=== PATIENT | male | born 1930 | race Caucasian/White ===

== ENCOUNTER 2016-07-16 09:10 | Day surgery (SDC) | payer MEDICARE, BC ==
--- NOTE | 2016-07-14 22:18 | HP ---
HISTORY AND PHYSICAL: DATE OF PLANNED ADMISSION AND SURGERY: 07/16/16 HISTORY OF PRESENT ILLNESS: Mr. Lawrence is an 85-year-old white male, who is admitted with multiple bladder tumors for cystoscopy, transurethral resection, and for bilateral retrograde pyelographies. Mr. 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 At that time, cystoscopy showed no other tumors, and workup of his upper tracts was normal. In January 2016, he underwent a partial cystectomy excising the diverticulum and the surrounding bladder tissue. 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 There was adjacent carcinoma in situ, but the margins of the excised specimen were clean. The patient did very well postoperatively. He was started on intravesical BCG, but he did not tolerate the treatments well having irritative bladder symptoms and episodes of urge incontinence. He ended up taking only a total of 3 non consecutive treatments with the last one in April 2016 and he did not want to complete the recommended course of 6 treatments. Over the last several weeks, he has been having on and off episodes of gross hematuria. He had a cystoscopy in the office, which showed multiple recurrences of medium to high-grade looking bladder lesions consistent with bladder tumors. The lesions involved the anterior, the Rt lateral bladder wall , and the base of the bladder. Because of an elevated serum creatinine of 2, a CT urogram could not be obtained. 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 The patient is now admitted for transurethral resection of the bladder tumors and for bilateral retrograde pyelographies to evaluate his upper tracts and to rule out any abnormal filling defects in his ureters or collecting system. 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 At that time, his PSA was 8.8. He had a radiotherapy consultation with the intent of giving him radiation treatments; however, the patient declined and wanted to go on surveillance. His PSA in July 2014 went up to 35. Metastatic work-up was negative. He has been on intermittent hormone ablation therapy. His last Lupron shot was in April 2016 and at that time, his PSA was 0.3. The patient has peripheral vascular disease and renal vascular disease. 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 His right kidney shows increased cortical echogenicity consistent with medical renal disease. The patient is hypertensive and maintained on metoprolol 50 mg daily and Norvasc 10 mg daily. He is otherwise generally healthy. He denies any chest pain, shortness of breath, or difficulty breathing. ALLERGIES: He has no allergies to medications; however, he reports that BACTRIM gives him some fatigue. He has latex allergy. PHYSICAL EXAMINATION GENERAL: Pleasant white male, who looks good for his age. VITAL SIGNS: Blood pressure 140/80. LUNGS: Clear. HEART: Regular and rhythmic. No murmurs. ABDOMEN: Soft. No masses, no tenderness, and no CVA tenderness. IMPRESSION: 1. 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 2. Prostate carcinoma, on intermittent hormone ablation therapy. 3. 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 4. History of hypertension, controlled on treatment. PLAN: For cystoscopy and bilateral retrograde pyelographies to evaluate his upper tracts, and for transurethral resection of multiple bladder tumors. I discussed the above plans with the patient. All his questions were answered. CC: Dr. Wilkes, [facility] * [id number]/[facility] #: [id number] DESIRAE
[~2016-07-16 09:10] MED LIST: Dexamethasone IV* 4 MG/ML 1 ML (4 MG) IV SLOW PU ONE; Famotidine IV* 10 MG/ML 2 ML (20 mg) IV ONE
[2016-07-16] MEDS ORDERED: cefTRIAXone(*) 2 GM ADDV.VIAL IVPB ONE (09:18)
[2016-07-16] MEDS ORDERED: Dexamethasone IV* 4 MG/ML 1 ML (4 MG) ONE (09:18)
[2016-07-16] MEDS ORDERED: Famotidine IV* 10 MG/ML 2 ML (20 mg) ONE (09:18)
[2016-07-16] MEDS ORDERED: Buffered Lidocaine 1% SYRIN* 5 ML/SYR SYRINGE ONE (09:18)
[2016-07-16] MEDS ORDERED: Iohexol 180 (CONTRAST) 10 ML SDV IV ONE (10:57)
[2016-07-16] MEDS ORDERED: Ondansetron INJ* 2 MG/ML VIAL ONE (11:13)
[2016-07-16] MEDS ORDERED: Propofol* 10 MG/ML 20 ML BTL IV PUSH ONE (11:13)
[2016-07-16] MEDS ORDERED: Lidocaine 2% PF * 5 ML VIAL ONE (11:13)
[2016-07-16] MEDS ORDERED: fentaNYL* 50 MCG/ML 2 ML VIAL (100 MCG VIAL) IV PRN (11:16)
[2016-07-16] MEDS ORDERED: DiMENhydriNATE IV* 50 MG/ML VIAL IV PUSH PRN (11:16)
[2016-07-16] MEDS ORDERED: fentaNYL* 50 MCG/ML 2 ML VIAL (100 MCG VIAL) ONE (11:34)
[2016-07-16] MEDS ORDERED: mitoMYcin PWD* 40 MG in Sterile Water for Inj* 40 ML IRRIGATION ONE (13:00)
--- NOTE | 2016-07-16 13:18 | RAD ---
INDICATION: Gross hematuria, bladder carcinoma COMPARISONS: December 26, 2015 TECHNIQUE: Fluoroscopy was provided for a retrograde pyelogram. Total fluoroscopy time is: 6 seconds FINDINGS: Spot images of the straight contrast within the renal collecting systems bilaterally. There is no appreciable hydronephrosis or mucosal lesion of the visualized collecting system. IMPRESSION: FLUOROSCOPY WAS PROVIDED FOR A RETROGRADE PYELOGRAM CPT II Codes: 6045F
[2016-07-16] MEDS ORDERED: Oxybutynin TAB* 5 MG ONE (14:00)
[2016-07-16 14:13] VITALS: BP 168/80
--- NOTE | 2016-07-17 03:06 | OP ---
OPERATIVE REPORT: DATE OF OPERATION: 07/16/16 - [facility] DATE OF : 32 SURGEON: Ja James MD ANESTHESIOLOGIST: Xander Walker MD ANESTHESIA: General. PRE-OP DIAGNOSIS: Multiple bladder tumors. POST-OP DIAGNOSIS: Multiple bladder tumors. OPERATIVE PROCEDURE: 1. Cystoscopy. 2. Bilateral retrograde pyelographies. 3. Transurethral resection and fulguration of multiple bladder tumors. INDICATIONS: Mr. Lawrence is an 85-year-old white male, who underwent a partial cystectomy in January 2016 for a high-grade, non-invasive transitional cell carcinoma inside a a 2 cm bladder diverticulum arising from the dome of the bladder. The pathology confirmed a high-grade noninvasive transitional cell carcinoma and all the margins were free. At that time, he had no bladder tumors. There was adjacent carcinoma in situ at the neck of the diverticulum. The patient was started on intravesical BCG; however, he had symptoms of overactive bladder and he refused to complete the treatment having received only total of 3 BCG treatments. He recently developed recurrent episodes of gross hematuria. Office Cystoscopy showed multiple bladder recurrences. The patient has decreased renal function secondary to an atrophic left kidney from renovascular disease. He cannot tolerate IV contrast. The patient is admitted for the above procedures. PATHOLOGY AT CYSTOSCOPY: The penile and bulbar urethrae looked normal. The prostatic urethra measured about 2.5 cm in the length and there was moderate obstruction by prostate enlargement. Examination of the bladder showed normal bladder neck and normal trigone. The ureteral orifices looked normal. There were multiple bladder tumors involving the base of the bladder, the right lateral wall and the dome of the bladder. The tumors had the appearance of a yhjdid-yh-tcwy-grade transitional cell carcinoma. They did not look grossly invasive into the bladder wall muscle. There was also adjacent hyperemia suggestive of carcinoma in situ. Bilateral retrograde pyelographies showed no abnormal filling defects in the ureters or in the collecting systems. There was no hydronephrosis on either side. DESCRIPTION OF PROCEDURE: After successful general anesthesia, the patient was placed in the lithotomy position and was prepped and draped in the usual manner. Cystoscopy was performed. The bladder was carefully inspected and the above findings were noted. Bilateral retrograde pyelographies were then performed visualizing the whole course of both ureters and the collecting systems. The above findings were noted. The cystoscope was then removed and resectoscope was introduced inside the bladder. The tumors in the base and the lateral bladder wall were resected down to muscle. The bed of the resected tissue was thoroughly fulgurated. The tumors in the dome of the bladder adjacent to the site of the partial cystectomy were superficially resected and the base extensively fulgurated. This was done to avoid the risk of perforating the dome of the bladder, which is thinned out from the surgery. The bladder was then irrigated and the resected tissue was removed and sent for pathology. After a final inspection, which showed very good hemostasis and no gross evidence of any residual disease and no evidence of bladder perforation, the resectoscope was removed and a size 18-Yakut Jacobs catheter was passed inside the bladder and the balloon inflated with 10 cc of water. Irrigation yielded clear returns. The patient tolerated the procedures well and left the operating room in good condition. The blood loss was negligible. The specimen was multiple bladder tumors. The plan is to give the patient 1 dose of intravesical mitomycin-C in the recovery room to decrease the risk of recurrent disease. If the patient has noninvasive bladder tumors, the plan is to try to give him a full course of intravesical BCG in the office. CC: Dr. Wilkes* [id number]/[facility] #: [id number] DESIRAE
== END 2016-07-16 15:13 | disposition home or self-care (01) ==
LOC: OR 09:10
PROVIDERS: ATTEND Urology
DX: C67.8 Malignant neoplasm of overlapping sites of bladder (principal); R31.0 Gross hematuria; I12.9 Hypertensive chronic kidney disease with stage 1 through stage 4 chronic kidney disease, or unspecified chronic kidney disease; N18.9 Chronic kidney disease, unspecified; I25.2 Old myocardial infarction; I25.10 Atherosclerotic heart disease of native coronary artery without angina pectoris; Z87.891 Personal history of nicotine dependence; I69.398 Other sequelae of cerebral infarction
CPT/HCPCS: 74420; 88305; A9270-GY; J0696; J1100; J2405; J2704; J3010; J9280

== ENCOUNTER 2017-11-13 12:03 | Day surgery (SDC) | payer MEDICARE, BC ==
--- NOTE | 2017-11-10 23:28 | HP ---
CC: Dr. Wilkes. * HISTORY AND PHYSICAL: DATE OF PLANNED ADMISSION AND SURGERY: 11/13/17 HISTORY OF PRESENT ILLNESS: Mr. Lawrence is an 86-year-old white male who is admitted with history of high grade bladder tumors, gross hematuria with blood noted from the left ureteral orifice, for cystoscopy, bilateral retrograde pyelographies, possible bilateral ureteroscopies and placement of ureteral stent. Mr. Lawrence's history goes back to December 2015 was he was diagnosed with a high grade bladder tumor with adjacent carcinoma in situ and a 2 cm diverticulum arising from the anterior bladder wall. In January 2016 he underwent a partial cystectomy excising the diverticulum and the surrounding bladder tissue. 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 At that time the work-up of his upper tract was negative for urothelial Ca.. The patient was given intravesical BCG postoperatively. He did not tolerate it well because of irritative bladder symptoms and he ended up receiving only 3 out of the recommended 6 treatments. In June 2016 he was admitted because of recurrent bladder tumors. He underwent resection of those tumors and the pathology showed high-grade transitional cell carcinoma with no invasion. He was given a full course of intravesical BCG, which he tolerated well, and completed it in August 2016. He was followed with periodic cystoscopies and he has done well and he has had no evidence of recurrent bladder tumors. His urine cytologies were negative. He presented recently with total gross painless hematuria. Cystoscopy was performed during the episode of hematuria and bloody efflux was seen coming from the left ureteral orifice. The bladder wall looked normal and there were no suspicious bladder lesions seen. Bilateral renal ultrasound showed an atrophic left kidney and normal right kidney. 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 His serum creatinine is in the vicinity of 2.5, so he is not a candidate for a CT urogram. The patient is now admitted for work-up of the gross hematuria with cystoscopy, bilateral retrograde pyelographies, possible bilateral ureteroscopies and a placement of bilateral ureteral stents. Mr. Lawrence was diagnosed in June 2010 with [place] 6 adenocarcinoma involving 7 out of the 12 biopsy cores from his prostate. At that time, he elected not to have any curative treatment. He has been on intermittent hormone ablation therapy with Lupron shots, with a very good response. His last Lupron shot was in June 2017. His most recent PSA was very low at 0.4. PAST MEDICAL HISTORY AND SYSTEM REVIEW: The patient has peripheral vascular disease and renal vascular disease. As mentioned earlier, he has a nonfunctioning atrophic left kidney. He is hypertensive maintained on metoprolol 50 mg daily and amlodipine 10 mg daily. He has been otherwise in fairly good health. He denies any chest pain, shortness of breath, or difficulty breathing. He denies any allergies to medications. He reports that Bactrim has given him some fatigue, but no allergies. PHYSICAL EXAMINATION GENERAL: On physical exam pleasant and healthy looking white male, who looks good for his age. VITAL SIGNS: Blood pressure 120/60, pulse of 60. HEART: Regular and rhythmic. No murmurs. Lungs are clear. ABDOMEN: Soft. No masses. No tenderness and no CVA tenderness. GENITALIA: External genitalia are normal. Rectal Exam: moderately enlarged prostate, minimal firmness, no induration. IMPRESSION: 1. 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 2. 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 3. Prostate carcinoma, on intermittent hormone ablation therapy with good control and very low PSA.. PLAN is to rule out upper tract disease causing the gross hematuria. He will have a Cystoscopy, bilateral retrograde pyelographies, possible bilateral ureteroscopies, washings, and stents placement. The above was described in detail with the patient and all his questions were answered. [id number]/[facility] #: [id number] [facility]
[~2017-11-13 12:03] MED LIST changes: +Buffered Lidocaine 0.9% SYRIN* 5 ML/SYR SYRINGE INTRADERM ONE; -Dexamethasone IV* 4 MG/ML 1 ML (4 MG) IV SLOW PU ONE
[2017-11-13] MEDS ORDERED: Famotidine IV* 10 MG/ML 2 ML (20 mg) ONE (12:14)
[2017-11-13] MEDS ORDERED: cefTRIAXone(*) 2 GM ADDV.VIAL IVPB ONE (12:14)
[2017-11-13] MEDS ORDERED: fentaNYL* 50 MCG/ML 2 ML VIAL (100 MCG VIAL) ONE (13:00)
[2017-11-13] MEDS ORDERED: Lidocaine 2% PF * 5 ML VIAL ONE (13:00)
[2017-11-13] MEDS ORDERED: Ondansetron INJ* 2 MG/ML VIAL ONE (13:00)
[2017-11-13] MEDS ORDERED: Propofol* 10 MG/ML 20 ML BTL IV PUSH ONE (13:00)
[2017-11-13] MEDS ORDERED: Dexamethasone IV* 4 MG/ML 1 ML (4 MG) ONE (13:00)
[2017-11-13] MEDS ORDERED: Midazolam* 1 MG/ML 5 ML VIAL (5 MG) ONE (13:00)
[2017-11-13] MEDS ORDERED: Iohexol 180 (CONTRAST) 10 ML SDV IV ONE (14:09)
[2017-11-13] MEDS ORDERED: fentaNYL* 50 MCG/ML 2 ML VIAL (100 MCG VIAL) IV PRN (14:42)
[2017-11-13] MEDS ORDERED: Ondansetron INJ* 2 MG/ML VIAL IV PRN (14:42)
[2017-11-13] MEDS ORDERED: Naloxone* 0.4 MG/ML 1 ML VIAL IV PRN (14:42)
[2017-11-13] MEDS ORDERED: Furosemide IV* 10 MG/ML 2 ML VIAL (20 MG) ONE (14:58)
--- NOTE | 2017-11-13 16:09 | RAD ---
INDICATION: Stent insertion COMPARISONS: July 16, 2016 TECHNIQUE: Fluoroscopy was provided for a retrograde pyelogram and stent placement. Total fluoroscopy time is: 21 seconds FINDINGS: Contrast is noted within the renal collecting systems bilaterally. A left ureteral stent is noted. IMPRESSION: FLUOROSCOPY WAS PROVIDED FOR A RETROGRADE PYELOGRAM AND STENT PLACEMENT CPT II Codes: G9500
[2017-11-13 17:06] VITALS: BP 153/62
--- NOTE | 2017-11-14 09:58 | OP ---
CC: Dr. Wilkes OPERATIVE REPORT: DATE OF OPERATION: 11/13/17 DATE OF : 32 SURGEON: Ja James MD. ANESTHESIOLOGIST: Dr. Gus Hopper. ANESTHESIA: General. PRE-OP DIAGNOSES: 1. History of bladder tumors. 2. Atrophic nonfunctioning left kidney. 3. Gross hematuria from left ureteral orifice. POST-OP DIAGNOSIS: Pending pathology. OPERATIVE PROCEDURES: 1. Cystoscopy. 2. Bilateral retrograde pyelographies. 3. Placement of left ureteral stent. INDICATIONS FOR PROCEDURE: Mr. Lawrence is an 86-year-old white male who has history of high grade noninvasive transitional cell carcinoma of the urinary bladder, treated by resection and intravesical BCG with good response and negative cystoscopy. He is known to have an atrophic nonfunctioning left kidney secondary to vascular disease. He presented this week with gross painless hematuria. Cystoscopy during the hematuria episode showed the blood coming from the left ureteral orifice. Because of an elevated serum creatinine, the patient is not a candidate for CT urogram. Bilateral renal ultrasound showed an atrophic left kidney and a normal - appearing right kidney. The patient is admitted for the above procedures for diagnostic purposes. PATHOLOGY AT CYSTOSCOPY: The penile urethra looked normal. There was a soft stricture of the bulbar urethra. The prostatic urethra was short and open. Examination of the bladder showed scarring from previous resections. There were no suspicious bladder lesions seen. No lesions to suggest carcinoma in situ. The ureteral orifices looked normal. At the time of the cystoscopy, there was no gross hematuria noted from either ureteral orifice. Left retrograde pyelography showed a delicate and thin-appearing left ureter and collecting system. There were no abnormal filling defects or dilatation in the ureter or the collecting system. There was moderate dilatation of the upper pole collecting system; however, no abnormal filling defects were noted in that area. The efflux and washings from the left kidney were moderately bloody. Right retrograde pyelography showed a normal ureter and collecting system without any abnormal filling defects. The washings from the right kidney were clear. DESCRIPTION OF PROCEDURE: After successful general anesthesia, the patient was placed in the lithotomy position and was prepped and draped for cystoscopy. Cystoscopy was performed. The bladder was carefully inspected and the above findings were noted, in particular, the absence of any suspicious bladder lesion seen. A flexible tip guidewire was introduced into the left ureteral orifice. A size 5- [place] open-ended catheter was fed on top of the guidewire and positioned in the distal ureter. Retrograde pyelography was then performed demonstrating a rather narrow delicate ureter without any dilatation or abnormal filling defects. The collecting system was then filled up and again no specific abnormalities were noted. Because of the narrow appearance of the left ureter, I felt that performing a ureteroscopy can result in either damage or perforation of the ureter. Decision was made just to put a stent so if ureteroscopy is needed at a later date, the ureter will be passively dilated and ureteroscopy will be safer to perform. A 6 -[place]andan stent was then placed with the proximal end in the upper pole collecting system and the distal end coiling inside the bladder. Attention was directed to the right side. Retrograde pyelography was similarly performed. The ureter looked normal. There were no abnormal filling defects. Washings were obtained from the right kidney. They were sent for cytology. At the end of the procedure, there was good drainage of contrast from both collecting systems. The left stent was in good position. A 16-[place]wand[place] Jacobs catheter was passed inside the bladder and the balloon inflated with 10 cc of water. The patient tolerated the procedure well and left the operating room in good condition. The plan is to wait for the result of the cytologies. Decision will be made on additional workup and possible need for the left ureteroscopy depending upon the cytology reports. [id number]/[facility] #: [id number] [facility]
== END 2017-11-13 17:00 | disposition home or self-care (01) ==
LOC: OR 12:03
PROVIDERS: ATTEND Urology
DX: R31.0 Gross hematuria (principal); Z85.51 Personal history of malignant neoplasm of bladder; D64.9 Anemia, unspecified; I10 Essential (primary) hypertension; I71.4 Abdominal aortic aneurysm, without rupture; J44.9 Chronic obstructive pulmonary disease, unspecified; I69.328 Other speech and language deficits following cerebral infarction; Z85.46 Personal history of malignant neoplasm of prostate
CPT/HCPCS: 74420; 88112; C1876; J0696; J1100; J1940; J2250; J2405; J2704; J3010

== ENCOUNTER 2017-12-02 06:01 | Day surgery (SDC) | payer MEDICARE, BC ==
--- NOTE | 2017-11-30 21:40 | HP ---
CC: Dr. Wilkes * INTERVAL HISTORY AND PHYSICAL: DATE OF PLANNED ADMISSION AND SURGERY: 12/02/17 HISTORY OF PRESENT ILLNESS: Please refer to my detailed history and physical for his admission on 11/13/17. In brief, Mr. Lawrence has had history of high-grade noninvasive transitional cell carcinoma of the urinary bladder and underwent treatment with partial cystectomy, transurethral resection and intravesical BCG. He recently presented with recurrent episodes of gross painless hematuria, which on cystoscopy was noted to be originating from his left kidney. Because of decreased renal function and atrophy of the left kidney and an elevated serum creatinine, CT urogram could not be obtained. On 11/13/17, he underwent a cystoscopy and right retrograde pyelography, which was completely normal showing no abnormal defects or lesions in the right ureter or collecting system. Washings from the right kidney showed atypia. Left retrograde pyelography showed a dilated upper pole caliceal system. The ureter was very thin with small caliber and a ureteroscopy was felt to be unsafe to perform for risk of ureteral perforation. Washings from the left kidney were suspicious for transitional cell carcinoma. The patient had a left ureteral stent inserted. The patient is known to have poorly functioning left kidney due to renal vascular disease. Postoperatively, he had a nuclear renal scan, which showed that the left kidney has very poor renal function with GFR of 2 to 3 mL/min. The patient has not had any recurrence of the gross hematuria since the stent was placed. To make a decision whether the patient is going to need a left nephrectomy, and to check for transitional cell carcinoma of the dilated upper pole collecting system, the patient is now brought in for cystoscopy, left ureteroscopy, and stent exchange. It is expected that with the presence of the stent for 2 weeks that the ureter is now dilated and it is safer to perform the ureteroscopy. There has not been any changes in his medical condition or in his physical examination. No change in his medications. The patient is still on metoprolol 50 mg daily and amlodipine 10 mg daily. He has no allergies to medications. He reports that Bactrim make him feel tired, but no true allergies. I discussed the above plans in detail with the patient. All his questions were answered. [id number]/[facility] #: [id number] [facility]
[~2017-12-02 06:01] MED LIST changes: -Famotidine IV* 10 MG/ML 2 ML (20 mg) IV ONE
[2017-12-02] MEDS ORDERED: Buffered Lidocaine 0.9% SYRIN* 5 ML/SYR SYRINGE ONE (06:11)
[2017-12-02] MEDS ORDERED: cefTRIAXone(*) 1 GM ADVAN/BAG ONE (06:11)
[2017-12-02] MEDS ORDERED: Lidocaine 2% PF * 5 ML VIAL ONE ×2 (06:30→06:32)
[2017-12-02] MEDS ORDERED: Propofol* 500 MG/50 ML BTL ONE (06:30)
[2017-12-02] MEDS ORDERED: Propofol* 10 MG/ML 20 ML BTL IV PUSH ONE (06:30)
[2017-12-02] MEDS ORDERED: Chloroprocaine 2%* 20 ML VIAL ONE (06:32)
[2017-12-02] MEDS ORDERED: Iohexol 180 (CONTRAST) 10 ML SDV IV ONE (07:24)
[2017-12-02] MEDS ORDERED: Phenylephrine INJ* 10 MG/ML 1 ML VIAL (10 MG) ONE (07:48)
[2017-12-02] MEDS ORDERED: Acetaminophen IV 1GM/100ML * 1,000 MG/100 ML VIAL IVPB ONE (08:09)
[2017-12-02] MEDS ORDERED: Naloxone* 0.4 MG/ML 1 ML VIAL IV PRN (08:09)
--- NOTE | 2017-12-02 09:39 | RAD ---
INDICATION: Left ureteral stent exchange COMPARISONS: November 13, 2017 TECHNIQUE: Fluoroscopy was provided for a retrograde pyelogram and stent placement. Total fluoroscopy time is: 31 seconds FINDINGS: Spot images demonstrate contrast within the renal collecting system. A ureteral stent is noted. IMPRESSION: FLUOROSCOPY WAS PROVIDED FOR A RETROGRADE PYELOGRAM AND STENT PLACEMENT CPT II Codes: G9500
[2017-12-02 10:32] VITALS: BP 163/65
--- NOTE | 2017-12-03 02:04 | OP ---
DATE OF OPERATION: 12/02/17 - [facility] DATE OF : 32 SURGEON: Dr. James. ANESTHESIOLOGIST: Dr. Juarez. ANESTHESIA: General. PRE-OP DIAGNOSIS: Rule out transitional cell carcinoma of the left kidney. POST-OP DIAGNOSIS: Pending pathology. OPERATIVE PROCEDURE: 1. Cystoscopy. 2. Left ureteroscopy and pyeloscopy. 3. Washings from left kidney. 4. Left retrograde pyelography and placement of left ureteral stent (6-Somali). INDICATION FOR PROCEDURE: Mr. Lawrence is an 86-year-old white male with history of transitional cell carcinoma of the urinary bladder and who was recently noted to have recurrent episodes of gross hematuria, which on cystoscopy were confirmed to be originating from his left ureteral orifice. The patient had a recent cystoscopy with bilateral retrogrades and washings. The washings from the left kidney were highly suspicious for transitional cell carcinoma. The patient now is brought in for pyeloscopy and possible biopsy if lesions are seen. PATHOLOGY: At cystoscopy, the penile and bulbar urethrae looked normal. The prostatic urethra was moderately obstructing. Examination of the bladder showed the distal limb of the stent coming from the left ureteral orifice. There were no suspicious bladder lesions seen. Upon left retrograde pyelography, there was dilated upper pole infundibulum, but no filling defects seen. Upon left ureteroscopy and pyeloscopy, there was hyperemia and edema of the mucosa of the renal pelvis and especially of the upper pole caliceal system. This could represent a flat tumor or reactive changes from the presence of the stent. No definite papillary lesions were seen. No abnormal filling defects were noted on the left retrograde pyelography. DESCRIPTION OF PROCEDURE: After successful general anesthesia, the patient was placed in the lithotomy position and was prepped and draped for a cystoscopy. Cystoscopy was performed. The bladder was inspected and the above findings were noted. The distal limb of the stent was then pulled out to the level of the urethral meatus. A flexible-tip guidewire was introduced through the lumen of the stent and positioned in the renal pelvis. A size 10-12 Somali access sheath was then fed on top of the guidewire and positioned in the mid ureter. The guidewire was removed. The flexible ureteroscope was then introduced through the access sheath and passed into the proximal ureter. There was a sharp bend at the ureteropelvic junction and that was bypassed by feeding flexible-tip guidewire through the ureteroscope and passing the guidewire into the upper pole collecting system and introducing the ureteroscope over the guidewire. The upper pole collecting system was carefully inspected and the above findings were noted. Washings using saline were obtained from the upper pole, the mid pole, and the renal pelvis and were all sent for cytology. All the accessible calices mostly the upper, mid to lower pole calices were individually inspected and no convincing papillary lesion was noted. The only suspicious findings were in the upper pole infundibulum and caliceal system where edema and elevated irregular mucosa was noted but that could also be reactive changes to the stent. The ureteroscope was then removed and the guidewire was reintroduced through the access sheath and the access sheath was removed. The cystoscope was introduced over the guidewire. Retrograde pyelography was performed demonstrating no extravasation. A size 6-Somali stent was then placed with the proximal end coiling in the upper pole caliceal system and the distal end coiling inside the bladder. There was good drainage of contrast from the kidney and no extravasation. A 16-Somali Jacobs catheter was placed. The patient tolerated the procedure well and left the operating room in good condition. The plan is to await the result of the cytologies and decide on the next step of treatment. [id number]/[facility] #: [id number] MTDD
== END 2017-12-02 10:33 | disposition home or self-care (01) ==
LOC: OR 06:01
PROVIDERS: ATTEND Urology
DX: C64.2 Malignant neoplasm of left kidney, except renal pelvis (principal); R31.0 Gross hematuria; Z85.51 Personal history of malignant neoplasm of bladder; Z87.891 Personal history of nicotine dependence; J44.9 Chronic obstructive pulmonary disease, unspecified; I25.2 Old myocardial infarction; Z95.5 Presence of coronary angioplasty implant and graft; D64.9 Anemia, unspecified
CPT/HCPCS: 74420; 88112; C1876; J0696; J2400; J2704

== ENCOUNTER → 2018-09-30 10:55 | Day surgery (SDC) | payer MEDICARE, BC ==
[~2018-09-30 10:55] MED LIST changes: -Buffered Lidocaine 0.9% SYRIN* 5 ML/SYR SYRINGE INTRADERM ONE; +Heparin 2 UNITS/ML IVPREMIX* 3,000 UNIT/1,500 ML BAG IV ONE; +Heparin(*) 1000 UNIT/ML 10 ML VIAL CATH LAB IV ONE; +Iodixanol 320 (CONTRAST) 100 ML SDV ONE; +LORazepam TAB(*) 1 MG ONE; +Levofloxacin 500 MG IVPREMIX(* 500 MG/100 ML BAG IVPB ONE; +Lidocaine 1% INJ* 10 MG/ML 30 ML SDV ONE; +Metoprolol Succinate XL TAB* 50 MG PO PRN; +Midazolam* 1 MG/ML 5 ML VIAL (5 MG) ONE; +NON FORMULARY MED* (Amlodipine Besylate [Norvasc] 10 MG) PO SCH; +Ondansetron INJ* 2 MG/ML VIAL ONE; +Tamsulosin CAP* 0.4 MG PO PRN; +fentaNYL* 50 MCG/ML 2 ML VIAL (100 MCG VIAL) IV SLOW PU PRN; +fentaNYL* 50 MCG/ML 2 ML VIAL (100 MCG VIAL) ONE; +niCARdipine IV* 25 MG in NS 0.9% 250 ML* 240 ML IVPB SCH; +nitroGLYCERIN DRIP* 0 MCG/0 ML BTL ONE
[2018-09-30 12:58] LABS: INR 1.01 (0.82-1.09)
--- NOTE | 2018-09-30 12:59 | HP ---
H&P (Free Text) History and Physical: Asked by Dr. Fitzgerald to manage post-op care for Mr Lawrence. He is scheduled for IR embolization of left kidney this afternoon and is seen by me in the preop area. He relates a long history of TCC with recurrence this year left kidney. He tells me his exercise tolerance is only limited by musculoskeletal pain but never gets CP or SOB. 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 Also history HTN and HLD. PMH - TCC bladder with multiple resections in the past s/p RT and Chemo as well , now T3NOMO left renal hilum, CVA 2000, HLD, HTN, AAA repair, prostate CA NKDA - NOT ALLERGIC TO FENTANYL by very specific questioning preop by me and the RN. Medications - Amlodipine, toprol, flomax, lupron and casodex. Dosages as per MR SH - former smoker, non-drinker, generally independent of activities of daily living, uses a walker FH - non-contributory ROS - as detailed in HPI and no no N/V/D. No chills, night sweats. Positive for gross hematuria since February. No HAs or new neurological changes. Physical Exam General Appearance: Positive: Alert, Oriented x3, Well Developed, Well Nourished , No Distress, Pleasant, Lying In Bed Eyes: Positive: EMOI, PERRLA Cardiovascular: Positive: S1, S2, Murmurs - 2/6 systolic murmur Respiratory: Positive: Non-Labored Abdomin: Positive: Soft, Nontender, BSx4 Peripheral Extremities: Positive: Pulse: Dosalis Pedis - No edema, Pulse: Posterior Tibial Skin: Even Skin Color Distribution Assessment and Plan Impression: 87 y/o male with PMH vascular disease and TCC now immediately preop for embolization left kidney asked to see for post-op management of expected HTN and pain. Plan: Emboliztion left kidney - excellent baseline functional status and now scheduled for minimally invasive approach to his disease. Post-op management will be with nicardipine for accelerated HTN and fentanyl for his pain. Possibly some IV hydration per Dr. Fitzgerald's prerogative. AM labs from my perspective, sooner if Dr. Fitzgerald feels indicated. HTN - continue Toprol and nicardipine and pain control as needed Prostate hypertrophy - continue tamsulosin Up and ambulating per Dr. Fitzgerald's timetable.
[2018-09-30 16:33] VITALS: BP 159/70
== END | disposition home or self-care (01) ==
LOC: CHICATH 10:55
PROVIDERS: ATTEND Radiology Diagnostic Radiology
DX: C64.2 Malignant neoplasm of left kidney, except renal pelvis (principal); I10 Essential (primary) hypertension; E78.5 Hyperlipidemia, unspecified; I69.320 Aphasia following cerebral infarction; Z85.46 Personal history of malignant neoplasm of prostate; Z85.51 Personal history of malignant neoplasm of bladder; Z87.891 Personal history of nicotine dependence; Z92.21 Personal history of antineoplastic chemotherapy
CPT/HCPCS: 36415; 75625; 76937; 85610; 99156; 99157; A9270-GY; C1769; C1887; J1644; J1956; J2250; J2405; J3010

== ENCOUNTER 2018-10-22 08:56 | Observation (INO) | payer MEDICARE, BC ==
[2018-10-22 10:25] LABS: Calcium 9.2 mg/dL (8.6-10.3); EGFR Non-African American 19.9 (>60); Potassium 3.8 mmol/L (3.5-5.0)
[2018-10-22] MEDS ORDERED: Lidocaine 1% INJ* 10 MG/ML 30 ML SDV ONE (14:09)
[2018-10-22] MEDS ORDERED: Iodixanol 320 (CONTRAST) 100 ML SDV ONE (14:09)
[2018-10-22] MEDS ORDERED: Heparin 2 UNITS/ML IVPREMIX* 4,000 UNIT/2,000 ML BAG IV ONE (14:10)
[2018-10-22] MEDS ORDERED: Midazolam* 1 MG/ML 5 ML VIAL (5 MG) ONE (14:12)
[2018-10-22] MEDS ORDERED: fentaNYL* 50 MCG/ML 2 ML VIAL (100 MCG VIAL) ONE (14:12)
[2018-10-22] MEDS ORDERED: Ondansetron INJ* 2 MG/ML VIAL ONE (16:31)
[2018-10-22] MEDS ORDERED: HYDROmorphone INJ1* 1 MG/ML SYRINGE ONE (16:43)
[2018-10-22] MEDS ORDERED: HYDROmorphone INJ1* 1 MG/ML SYRINGE IV PRN (17:22)
[2018-10-22] MEDS ORDERED: Ondansetron INJ* 2 MG/ML VIAL IV PRN (17:22)
[2018-10-22] MEDS ORDERED: Acetaminophen TAB* 325 MG PO PRN (17:26)
[2018-10-22] MEDS ORDERED: Metoprolol Succinate XL TAB* 50 MG PO PRN (17:58)
[2018-10-22] MEDS ORDERED: Scopolamine 1.5 mg* PATCH TRANSDERM SCH (18:00)
--- NOTE | 2018-10-22 18:34 | PN ---
Progress Note - Progress Note Date of Service: 10/22/18 Note: Brief Admit note: Patient had LEFT renal embolization procedure today with Dr. Fitzgerald. Indication was hematuria per patient. Moved to ICU from PACU due to risk of hypertensive crisis. Patient had 9/10 flank pain LT post procedure. Now 6/10 post dilaudid, he does not want more pain meds now. Selected Entries 10/22/18 17:04 Pulse Rate 68 Blood Pressure 152/71 (mmHg) O2 Sat by Pulse 100 Oximetry Alert, cooperative Lungs: clear Heart; RRR, no murmur Abdo; soft, NT, no flank tenderness Extrem: 1+ edema bilat, absent DP pulses bilat Laboratory Tests 10/22/18 10:05 Sodium 141 Potassium 3.8 BUN 42 H Creatinine 3.01 H Glucose 114 H Creatinine at baseline. A/P: CKD, with embolization of bleeding vessel LT kidney Risk of hypertensive crisis, will monitor in ICU overnight. Dr. Sr to assume care in AM Continue IVF, pain meds. Home meds ordered, can take Toprol XL tonight. Dr. Sr or I will dictate full H&P in AM.
[2018-10-22] MEDS: NS 0.9% 1000 ML** 1,000 ML IV SCH (19:06)
[2018-10-22 19:23] LABS: ABS Eosinophils 0.1 10^3/ul (0-0.6); ABS Lymphocytes 1.2 10^3/ul (1.0-4.8); ABS Monocytes 0.5 10^3/ul (0-0.8); ABS Neutrophils 4.1 10^3/ul (1.5-7.7); Eosinophil % 2.5 %; Hematocrit 27 % (42-52); Hemoglobin 9.5 g/dL (14.0-18.0); Lymphocyte % 20.1 %; Mean Corpuscular HGB Conc 35 g/dL (31-36); Mean Corpuscular Hemoglobin 33 pg (27-31); Mean Corpuscular Volume 94 fL (80-94); Mean Platelet Volume 8.6 fL (7.4-10.4); Platelet Count 125 10^3/uL (150-450); Red Blood Count 2.92 10^6 /uL (4.18-5.48); Red Cell Distribution Width 14 % (10-15)
[2018-10-22 19:32] LABS: Activated Partial Thrombo Time 31.7 seconds (26.0-38.0); INR 1.07 (0.82-1.09)
[2018-10-22 19:42] LABS: Albumin 3.7 g/dL (3.2-5.2); Albumin/Globulin Ratio 1.3 (1-3); BUN/Creatinine Ratio 14.6 (8-20); EGFR Non-African American 21.5 (>60); Globulin 2.9 g/dL (2-4); Magnesium 1.9 mg/dL (1.9-2.7); Potassium 3.6 mmol/L (3.5-5.0); Total Bilirubin 0.5 mg/dL (0.2-1.0); Total Protein 6.6 g/dL (6.4-8.9)
[2018-10-22] MEDS: Metoprolol Succinate XL TAB* 50 MG PO SCH (20:24)
[2018-10-23] MEDS: NS 0.9% 1000 ML** 1,000 ML IV SCH (02:10)
[2018-10-23 05:51] LABS: ABS Eosinophils 0.1 10^3/ul (0-0.6); ABS Lymphocytes 0.8 10^3/ul (1.0-4.8); ABS Monocytes 0.6 10^3/ul (0-0.8); ABS Neutrophils 4.5 10^3/ul (1.5-7.7); Eosinophil % 1.2 %; Hematocrit 24 % (42-52); Hemoglobin 8.2 g/dL (14.0-18.0); Lymphocyte % 12.9 %; Mean Corpuscular HGB Conc 34 g/dL (31-36); Mean Corpuscular Hemoglobin 32 pg (27-31); Mean Corpuscular Volume 94 fL (80-94); Mean Platelet Volume 8.5 fL (7.4-10.4); Platelet Count 113 10^3/uL (150-450); Red Blood Count 2.56 10^6 /uL (4.18-5.48); Red Cell Distribution Width 14 % (10-15)
[2018-10-23 06:01] LABS: Albumin 3.3 g/dL (3.2-5.2); Albumin/Globulin Ratio 1.4 (1-3); BUN/Creatinine Ratio 15.4 (8-20); Calcium 8.2 mg/dL (8.6-10.3); EGFR African American 27.7 (>60); EGFR Non-African American 22.9 (>60); Globulin 2.4 g/dL (2-4); Magnesium 1.8 mg/dL (1.9-2.7); Potassium 4.1 mmol/L (3.5-5.0); Total Bilirubin 0.5 mg/dL (0.2-1.0); Total Protein 5.7 g/dL (6.4-8.9)
[2018-10-23] MEDS: Metoprolol Succinate XL TAB* 50 MG PO SCH (08:34)
[2018-10-23] MEDS ORDERED: amLODIPine TAB* 5 MG PO SCH (09:00)
[2018-10-23] MEDS ORDERED: Magnesium Oxide TAB* 400 MG PO SCH (09:00)
[2018-10-23] MEDS ORDERED: Tamsulosin CAP* 0.4 MG PO SCH (09:00)
--- NOTE | 2018-10-23 09:19 | PN ---
Progress Note - Progress Note Date of Service: 10/23/18 SOAP: Subjective: Spoke to Court, the patient's RN. No nausea or emesis overnight. Pain not bad enough that patient required PRN dilaudid. One dose of Tylenol for temperature of 100.4 No blood in urine. Eating breakfast and sitting up without issue. Objective: Selected Entries 10/22/18 10/22/18 10/22/18 19:45 19:51 23:00 Temperature 97.0 F Pulse Rate 74 66 Heart Rate Respiratory Rate Blood Pressure 143/64 125/75 (mmHg) Blood Pressure 98 85 Mean O2 Sat by Pulse Oximetry 10/23/18 10/23/18 10/23/18 00:00 00:01 04:00 Temperature 97.1 F 97.8 F Pulse Rate 66 Heart Rate Respiratory Rate Blood Pressure 151/69 (mmHg) Blood Pressure 77 Mean O2 Sat by Pulse Oximetry 10/23/18 10/23/18 10/23/18 04:01 07:00 08:00 Temperature 101.5 F Pulse Rate 62 Heart Rate 61 Respiratory 18 Rate Blood Pressure 132/45 149/64 (mmHg) Blood Pressure 107 Mean O2 Sat by Pulse 93 Oximetry Laboratory Tests 10/22/18 10/23/18 10/23/18 19:00 05:34 05:34 WBC 6.0 6.0 Hgb 9.5 L 8.2 L Hct 27 L 24 L BUN 41 H Creatinine 2.66 H Est GFR ( Amer) 27.7 Assessment: 87 YOM POD #1 status post coil embolization of left renal artery graft for symptomatic relief of bleeding left kidney transitional cell carcinoma. The patient has not had pain severe enough for narcotic therapy and has not had nausea/emesis. Fever of 100.5 is within parameters of expected "embolization syndrome". Plan: 1. D/C to home. 2. Continue to wear Scopolamine patch until Thursday evening. 3. Tylenol for pain as needed. 4. IR clinic nurse will call patient 10/26/18 to inquire about any symptoms.
--- NOTE | 2018-10-23 11:24 | HP ---
CC: Dr. Mejia; Dr. James; Dr. Fitzgerald ADMISSION HISTORY AND PHYSICAL: DATE OF ADMISSION: 10/22/18 CHIEF COMPLAINT: Hematuria. HISTORY OF PRESENT ILLNESS: Mr. Lawrence is an 87-year-old man who has transitional cell carcinoma of the bladder with multiple resections. He has been troubled with hematuria and was brought in electively today to the hospital for embolization to the left renal artery. The patient was seen for a preoperative evaluation by Dr. Perry on 09/30/18. At that time, he was thought to be well optimized for surgery, excellent baseline functional status. Risks identified included a postop accelerated hypertension, which could be managed with nicardipine. Postop pain was planned to be managed with fentanyl despite a reported fentanyl allergy that appears to be erroneous. The patient also has seen Dr. James on multiple occasions and had a cystoscopy performed on 12/02/17 that showed transitional cell carcinoma, left kidney. The patient was seen for radiation oncology consultation at [facility] on 08/30/18, where the case was fully reviewed. It appears that the plan is to have radiation therapy after this embolization when he has recovered fully. The patient was taken to the angio suite on the day of admission and the left renal artery was successfully cannulated and embolized. The patient did well and was transferred to the intensive care unit for post-procedure management and monitoring for accelerated hypertension. The patient reports no hematuria but does report 8/10 flank pain on the left. He has received Dilaudid IV and has the reduction of pain down to 6/10. He is not requesting more pain medicine at this time. He had fentanyl earlier without incident. The patient denies any chest pain or palpitations. The patient denies any dyspnea. PAST MEDICAL HISTORY: 1. Hypertension. 2. Hyperlipidemia. 3. Left renal pelvis transitional cell carcinoma, [id number] stage III as well as history of bladder transitional cell carcinoma, high grade. 4. He has BPH. 5. Stroke in 2000. 6. History of abdominal aortic aneurysm repair. 7. Active prostate cancer, under treatment with hormonal manipulation. PAST SURGICAL HISTORY: 1. Cholecystectomy, 1979. 2. Abdominal aortic aneurysm repair, 2000. 3. Lumbar surgery, 1994. 4. Ureteral stent placement. 5. Cystourethroscopy on the left, 04/29/18. MEDICATIONS ON ADMISSION: 1. Amlodipine 10 mg p.o. q.a.m. 2. Lupron Depot 11.25 mg IM q.4 months. 3. Metoprolol XL 50 mg p.o. daily. 4. Flomax 0.4 mg p.o. daily. ALLERGIES: LATEX and OXYCODONE. FAMILY HISTORY: Daughter had aneurysm and stroke. Mother had breast cancer. Father had myocardial infarction. Mother had liver cancer. SOCIAL HISTORY: He is retired. He quit smoking 5 years ago. He has a 30-pack - year history. He drinks alcohol about 2 drinks per week. No recreational drugs. He is . REVIEW OF SYSTEMS: The patient denies any fevers, weight loss, anorexia. The patient denies any chest pain or palpitations. The patient denies any shortness of breath or cough. The patient denies any abdominal pain but does report the left flank pain. The patient denies any leg swelling. The patient does report hematuria for many weeks. The remainder of 14-point review of systems is negative other than mentioned in the HPI. PHYSICAL EXAMINATION GENERAL: He is an elderly man in no acute distress. VITAL SIGNS: Temperature is 37.1, pulse 66 to 76, respirations 18, blood pressure has been 152/71 up to 170/68, oxygen saturation is 91 to 95% on room air. HEENT: Head is normocephalic, atraumatic. Sclerae are anicteric. Pupils equal , round, and reactive to light and accommodation. Oropharynx is moist, no lesions. NECK: No JVD, no carotid bruits, no thyromegaly. LUNGS: Diminished throughout, but clear. No rales. HEART: Regular rate and rhythm without murmurs or gallops. ABDOMEN: Soft, nontender. Positive bowel sounds. No hepatosplenomegaly. There is left flank tenderness. EXTREMITIES: 1+ pitting edema bilaterally. Absent dorsalis pedis pulses, but posterior tibial pulses are 1+ bilaterally. NEUROLOGIC: He is alert and oriented x3. He is moving all 4 extremities. Deep tendon reflexes are 1+ and symmetric. DIAGNOSTIC STUDIES/LAB DATA: White count 6.0, hemoglobin 9.5, hematocrit 27%, platelets are 125. INR 1.07. PTT is 31.7. Sodium 141, potassium 3.8, chloride 109, bicarb 21. BUN 42, creatinine 3.01, which is at his baseline. Glucose 114. No imaging has been required during this hospital admission other than the control films for the procedure. ASSESSMENT AND PLAN: An 87-year-old man for an elective left renal artery embolization with risk of accelerated hypertension. The patient will be observed overnight in the intensive care unit and nurses will call us if the systolic rate is over 160. The patient will be continued on his normal beta blockers, Norvasc, Flomax, etc. Transitional cell carcinoma. Co-management will be through Dr. James and Radiation Oncology. Chronic kidney disease. The patient's creatinine is at his baseline, but we will recheck this in the morning to assure there is no acute kidney injury on the contralateral side. DVT prophylaxis. The patient will have sequential compression devices as we will be avoiding any heparin containing medications with his risk of hematuria. [id number]/[facility] #: [id number] MTDLisa
[2018-10-23 12:01] VITALS: BP 128/58
--- NOTE | 2018-10-24 00:04 | DS ---
CC: Dr. Fitzgerald; Dr. Mejia DISCHARGE SUMMARY: DATE OF ADMISSION: 10/22/18 DATE OF DISCHARGE: 10/23/18 PRIMARY CARE PHYSICIAN: Dr. Mejia. 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 SECONDARY DIAGNOSES: 1. Hypertension. 2. Hyperlipidemia. 3. Benign prostatic hypertrophy. 4. History of stroke. 5. Abdominal aortic aneurysm, status post repair. 6. Prostate cancer, under treatment with hormonal therapy. MEDICATIONS ON DISCHARGE: 1. Amlodipine 10 mg p.o. every day. 2. Lupron injection every 4 months. 3. Toprol-XL 50 mg p.o. every day. 4. Tamsulosin 0.5 mg p.o. every day. 5. Acetaminophen as needed. 6. Magnesium oxide 400 mg p.o. every day. HOSPITAL COURSE: The patient with hematuria from known left-sided transitional carcinoma stage cT3N0 M0 cancer, who was brought to the angiography suite by Dr. Fitzgerald for elective embolization of this b leeding lesion. The patient had preop consultation earlier this month with Dr. Perry. The proce dure proceeded without incident and the patient was transferred to the ICU for monitoring for hyperte nsion. He did have flank pain that required treatment with Dilaudid IV. The pain resolved within a f ew hours. Hematuria appears to have resolved. The patient did not have any further hypertension and was maintained on his usual blood pressure medicines. Notably, the patient had a renal nuclear scan on 11/25/17 that showed a GFR of 13.5 mL per minute, with only 2.4 mL per minute contributed by the left kidney and 11.1 mL contributed by the right kidney. Because the left kidney was essentially non functional, it was thought that it could be embolized to stop this bleed and palliate the cancer. Th e patient was ambulatory and tolerating food well on the day of discharge. Initial hemoglobin was 9. 5 and fell to 8.2 postoperatively. Coagulation studies were negative. Initial creatinine was 3.01 a nd which fell to 2.66 on discharge. DISPOSITION: To home. CONDITION: Stable. STATUS: Observation. DIET: His diet should be low salt. [id number]/[facility] #: [id number]
[2018-10-25] MEDS ORDERED: Scopolamine PATCH Remove* 1 NOTE MISC PATCH OFF SCH (18:00)
== END 2018-10-23 11:50 | disposition home or self-care (01) ==
LOC: CHICATH 08:56 → UNDOADMOB 17:02 → ICU 17:02
PROVIDERS: ADMIT Internal Medicine; ATTEND Internal Medicine
DX: C64.2 Malignant neoplasm of left kidney, except renal pelvis (principal); E78.5 Hyperlipidemia, unspecified; I10 Essential (primary) hypertension; N40.0 Benign prostatic hyperplasia without lower urinary tract symptoms; Z86.73 Personal history of transient ischemic attack (TIA), and cerebral infarction without residual deficits; I71.4 Abdominal aortic aneurysm, without rupture; C61 Malignant neoplasm of prostate; Z79.899 Other long term (current) drug therapy
CPT/HCPCS: 36415; 37243; 75625; 76937; 80048; 80053; 83735; 85025; 85610; 85660; 85730; 87641; 96361; 96374; 99156; 99157; A9270-GY; C1769; C1887; C1894; G0378; J1170; J1644; J2250; J2405; J3010

== ENCOUNTER 2020-01-25 04:40 | Observation (INO) ==
[2020-01-25] MEDS ORDERED: fentaNYL 100 mcg/2 ml 50 MCG/ML VIAL IV SLOW PU ONE (05:18)
[2020-01-25] MEDS ORDERED: NS 0.9% 1000 ml BAG 1,000 ML IV ONE (05:19)
[2020-01-25 05:33] LABS: ABS Basophils 0.1 10^3/ul (0-0.2); ABS Eosinophils 0.3 10^3/ul (0-0.6); ABS Monocytes 0.8 10^3/ul (0-0.8); ABS Neutrophils 7.6 10^3/ul (1.5-7.7); Eosinophil % 2.7 %; Hematocrit 23 % (42-52); Hemoglobin 7.4 g/dL (14.0-18.0); Lymphocyte % 10.4 %; Mean Corpuscular HGB Conc 32 g/dL (31-36); Mean Corpuscular Hemoglobin 29 pg (27-31); Mean Corpuscular Volume 89 fL (80-94); Mean Platelet Volume 8.9 fL (7.4-10.4); Nucleated Red Blood Cells % 0.2; Platelet Count 212 10^3/uL (150-450); Red Blood Count 2.59 10^6 /uL (4.18-5.48); Red Cell Distribution Width 18 % (10-15); White Blood Count 9.8 10^3/uL (3.5-10.8)
[2020-01-25 05:38] LABS: INR 1.3 (0.82-1.09)
[2020-01-25] MEDS ORDERED: HYDROmorphone 0.5 MG/0.5 ML SYRINGE IV ONE (05:43)
[2020-01-25 05:52] LABS: ALT 28 U/L (7-52); AST 41 U/L (13-39); Albumin/Globulin Ratio 0.9 (1-3); Alkaline Phosphatase 194 U/L (34-104); Amylase 23 U/L (29-103); Anion Gap 11 mmol/L (2-11); BUN/Creatinine Ratio 17.8 (8-20); Blood Urea Nitrogen 43 mg/dL (6-24); C Reactive Protein 100.59 mg/L (<8.01); CO2 Carbon Dioxide 21 mmol/L (22-32); Calcium 8.5 mg/dL (8.6-10.3); Chloride 105 mmol/L (101-111); EGFR African American 30.9 (>60); EGFR Non-African American 25.6 (>60); Globulin 3.2 g/dL (2-4); Glucose 126 mg/dL (70-100); Lipase 17 U/L (11.0-82.0); Potassium 3.3 mmol/L (3.5-5.0); Sodium 137 mmol/L (135-145); Total Protein 6.2 g/dL (6.4-8.9)
[2020-01-25 07:04] LABS: Troponin I 0.16 ng/mL (<0.03)
[2020-01-25 09:26] LABS: Troponin I 0.14 ng/mL (<0.03)
[2020-01-25 10:17] LABS: Urine Appearance Cloudy; Urine Bilirubin Negative (Negative); Urine Blood 3+ (Negative); Urine Color Yellow; Urine Glucose 2+(150 mg/dL) (Negative); Urine Ketones Negative (Negative); Urine Nitrite Negative (Negative); Urine Protein 2+(100 mg/dL) (Negative); Urine Specific Gravity 1.013 (1.010-1.030); Urine Urobilinogen Negative (Negative)
[2020-01-25] MEDS ORDERED: Aspirin EC 325 mg TAB.EC PO ONE (10:19)
[2020-01-25 10:21] LABS: Urine Bacteria Absent (Absent); Urine Red Blood Cell 3+(>10/hpf) (Absent); Urine White Blood Cell 1+(6-10/hpf) (Absent)
[2020-01-25] MEDS ORDERED: Ondansetron 4 mg VIAL 2 MG/ML 2 ml VIAL IV PRN (10:36)
[2020-01-25] MEDS ORDERED: Al Hydrox/Mg Hydrox/Simet LIQ 30 ML UDC PO PRN (10:36)
[2020-01-25] MEDS ORDERED: Polyethylene Glycol 3350 17 GM PACKET PO PRN (10:38)
[2020-01-25 11:13] LABS: Iron 24 ug/dL (50-212); Prealbumin 6 mg/dL (18-38)
[2020-01-25 11:33] LABS: Ferritin 183.7 ng/mL (24-336)
[2020-01-25 11:37] LABS: Folate 12.69 ng/mL (>3.99)
[2020-01-25 11:38] LABS: Vitamin B12 1360 pg/mL (180-914)
[2020-01-25 12:06] LABS: % Iron Saturation 8 % (15-55); Total Iron Binding Capacity 284 mcg/dL (250-450); Transferrin 203 mg/dL (203-362); Unsaturated Iron Binding < 269 ug/dL
[2020-01-25] MEDS ORDERED: Heparin 5000 UNITS/ML 1 mL VIAL SUBCUT SCH (14:00)
[2020-01-25] MEDS ORDERED: fentaNYL PATCH 12 MCG/HR 1 PATCH TRANSDERM SCH (15:00)
[2020-01-25] MEDS: Morphine 2 MG/ML SYRINGE IV PRN ×2 (16:24→21:12)
[2020-01-25] MEDS: fentaNYL Patch Check Q Shift NOTE FOLLOW UP SCH (18:56)
[2020-01-25] MEDS ORDERED: Senna TAB 8.6 mg TAB PO SCH (21:00)
[2020-01-26] MEDS: Morphine 2 MG/ML SYRINGE IV PRN ×2 (01:31→05:43)
[2020-01-26 06:28] LABS: ABS Eosinophils 0.2 10^3/ul (0-0.6); ABS Lymphocytes 0.8 10^3/ul (1.0-4.8); ABS Monocytes 0.6 10^3/ul (0-0.8); Eosinophil % 2.3 %; Hematocrit 20 % (42-52); Hemoglobin 6.5 g/dL (14.0-18.0); Lymphocyte % 10.7 %; Mean Corpuscular HGB Conc 32 g/dL (31-36); Mean Corpuscular Hemoglobin 29 pg (27-31); Mean Corpuscular Volume 90 fL (80-94); Mean Platelet Volume 8.9 fL (7.4-10.4); Nucleated Red Blood Cells % 0.1; Platelet Count 178 10^3/uL (150-450); Red Blood Count 2.24 10^6 /uL (4.18-5.48); Red Cell Distribution Width 18 % (10-15); White Blood Count 7.7 10^3/uL (3.5-10.8)
[2020-01-26 06:39] LABS: Calcium 8.1 mg/dL (8.6-10.3); EGFR African American 30.1 (>60); EGFR Non-African American 24.8 (>60); Potassium 4.1 mmol/L (3.5-5.0)
[2020-01-26] MEDS: fentaNYL Patch Check Q Shift NOTE FOLLOW UP SCH (07:01)
[2020-01-26] MEDS ORDERED: Lidocaine PATCH 5% PATCH TRANSDERM SCH (09:00)
[2020-01-26 12:23] VITALS: BP 109/62
[2020-01-26] MEDS ORDERED: Lidocaine Patch REMOVE PATCH PATCH OFF SCH ×2 (21:00)
== END 2020-01-26 19:30 | disposition home or self-care (01) ==
LOC: MED 04:40 → ED 04:40 → MED 13:00
PROVIDERS: ADMIT Pediatrics; ATTEND Internal Medicine